=== PATIENT | female | born 1950 | race Caucasian/White ===

== ENCOUNTER 2019-06-11 12:50 | Emergency (ER) | payer OTHER ==
[~2019-06-11] VITALS: Ht 160 cm; Wt 63.5 kg
[~2019-06-11 12:50] MED LIST: IBUPROFEN 600600 M1 PO; NOHOMEMEDICATIONS
[2019-06-11] MEDS ORDERED: VALACYCLOVIR1000 MG PO (14:21)
[2019-06-11 14:30] VITALS: BP 133/71
== END 2019-06-11 14:32 | disposition home or self-care (01) ==
LOC: ER 12:50
DX: B02.9 Zoster without complications (principal); E66.9 Obesity, unspecified; Z68.24 Body mass index [BMI] 24.0-24.9, adult